=== PATIENT | female | born 1990 | race Two or more races ===

== ENCOUNTER 2021-07-04 17:20 | Emergency (ER) | payer SELFPAY ==
[~2021-07-04] VITALS: Ht 160 cm; Wt 61.2 kg
[2021-07-04 19:50] VITALS: BP 127/74
[2021-07-04] MEDS ORDERED: FLUCONAZOLE 100 MG TAB PO ONE (20:45)
== END 2021-07-04 21:00 | disposition home or self-care (01) ==
LOC: ER 17:25
DX: B37.3 Candidiasis of vulva and vagina (principal)

== ENCOUNTER 2023-02-04 20:20 | Emergency (ER) | payer OTHER ==
[~2023-02-04] VITALS: Ht 162.6 cm; Wt 65.8 kg
[2023-02-04] MEDS ORDERED: KETOROLAC TROMETH 60MG/2ML VIAL IM ONE (22:30)
[2023-02-04] MEDS ORDERED: ONDANSETRON ODT 4 MG TAB PO ONE (22:30)
[2023-02-04] MEDS ORDERED: IBUP1TAB5 PO (22:34)
[2023-02-04] MEDS ORDERED: AUG875T PO (22:34)
[2023-02-04] MEDS ORDERED: ZOFR4T PO (22:34)
[2023-02-04] MEDS ORDERED: FLUT1SPR5 (22:34)
[2023-02-04] MEDS ORDERED: PRED20TA2 PO (22:34)
[2023-02-05 00:54] VITALS: BP 123/70; PULSE 87; RESP 17; TEMP 99.6; O2SAT 97
== END 2023-02-04 22:56 | disposition home or self-care (01) ==
LOC: ER 20:20
DX: R51.9 Headache, unspecified (principal); J32.9 Chronic sinusitis, unspecified; K04.7 Periapical abscess without sinus
CPT/HCPCS: 96372; 99283; J1885; Q0162